=== PATIENT | male | born 1980 | race Caucasian/White ===

== ENCOUNTER 2017-04-27 19:38 | Emergency (ER) | payer MEDICAID ==
[~2017-04-27] VITALS: Ht 175.3 cm; Wt 114.8 kg
[2017-04-27 20:18] VITALS: BP 160/109
[2017-04-27 21:12] LABS: Basophils # (auto) 0.1 uL; Eosinophils # (auto) 0.2 uL; Hemoglobin 11.7 g/dL (13.5-17.5); Lymphocytes # (auto) 1.7 uL; Mean Corpuscular Hemoglobin 37.8 pg (28.0-32.0); Mean Corpuscular Hgb Conc. 34.4 g/dL (32.0-36.0); Nucleated Red Blood Cells % 0.1 %
[2017-04-27 21:14] LABS: Eosinophils % (auto) 1.9 % (0.0-7.0); Hematocrit 33.9 % (41.0-53.0); Lymphocytes % (auto) 18.3 % (10.0-50.0); Mean Corpuscular Volume 109.8 fL (80.0-100.0); Monocytes # (auto) 0.9 uL; Monocytes % (auto) 9.8 % (0.0-12.0); Neutrophils # (auto) 6.4 uL; Platelet Count (auto) 131 10^3/uL (140-450); Red Blood Cells 3.09 10^6/uL (4.5-5.90); Red Cell Distribution Width 13.8 % (11.8-14.3); White Blood Cell 9.2 10^3/uL (4.4-10.8)
[2017-04-27 21:29] LABS: Albumin 1.6 g/dL (3.4-5.0); BUN/Creatinine Ratio 10.9; Calcium 7.5 mg/dL (8.5-10.1)
== END 2017-04-27 22:56 | disposition left against medical advice (07) ==
LOC: ER 19:38
DX: R10.9 Unspecified abdominal pain (principal); Z53.21 Procedure and treatment not carried out due to patient leaving prior to being seen by health care provider
CPT/HCPCS: 36415; 74176; 80053; 82150; 83690; 85025

== ENCOUNTER 2017-04-28 10:52 | Emergency (ER) | payer MEDICAID ==
[2017-04-29] MEDS ORDERED: SPIR25TA89 PO (16:16)
[2017-04-29] MEDS ORDERED: LACT10SO3 PO (16:16)
[2017-04-29] MEDS ORDERED: FURO40TA4 PO (16:16)
== END 2017-04-28 11:41 | disposition left against medical advice (07) ==
LOC: ER 10:52
DX: R10.9 Unspecified abdominal pain (principal); Z53.21 Procedure and treatment not carried out due to patient leaving prior to being seen by health care provider

== ENCOUNTER 2017-04-28 20:19 | Inpatient (IN) | payer MEDICAID ==
[~2017-04-28] VITALS: Ht 175.3 cm; Wt 103.5 kg
[2017-04-28 22:49] LABS: Basophils # (auto) 0.1 uL; Eosinophils # (auto) 0.2 uL; Hemoglobin 11.1 g/dL (13.5-17.5); Mean Corpuscular Hgb Conc. 34.1 g/dL (32.0-36.0); Monocytes # (auto) 0.9 uL; Platelet Count (auto) 102 10^3/uL (140-450); White Blood Cell 8.3 10^3/uL (4.4-10.8)
[2017-04-28 22:50] LABS: Basophils % (auto) 0.7 % (0.0-2.0); Eosinophils % (auto) 2.2 % (0.0-7.0); Hematocrit 32.4 % (41.0-53.0); Lymphocytes # (auto) 1.4 uL; Lymphocytes % (auto) 17.4 % (10.0-50.0); Mean Corpuscular Hemoglobin 37.7 pg (28.0-32.0); Mean Corpuscular Volume 110.6 fL (80.0-100.0); Monocytes % (auto) 10.7 % (0.0-12.0); Neutrophils # (auto) 5.7 uL; Nucleated Red Blood Cells % 0.1 %; Red Blood Cells 2.93 10^6/uL (4.5-5.90); Red Cell Distribution Width 13.8 % (11.8-14.3)
[2017-04-28 23:04] LABS: INR 1.29 (0.9-1.15); Partial Thromboplastin Time 30.1 sec (22.64-33.71); Prothrombin Time 14.1 sec (9.37-12.3)
[2017-04-28 23:08] LABS: Alanine Aminotransferase 52 U/L (16-61); Albumin 1.4 g/dL (3.4-5.0); Amylase 39 U/L (25-115); Anion Gap 4 (5-15); Aspartate Aminotransferase 133 U/L (15-37); BUN/Creatinine Ratio 13.6; Blood Urea Nitrogen 15 mg/dL (7-18); Calcium 7.4 mg/dL (8.5-10.1); Carbon Dioxide 28 mmol/L (21-32); Chloride 105 mmol/L (98-107); GFR African American 97 mL/min; GFR Non-African American 80 mL/min; Glucose 112 mg/dL (74-106); Lipase 559 U/L (73-393); Magnesium 1.6 mg/dL (1.6-2.6); Potassium 4.1 mmol/L (3.5-5.1); Sodium 137 mmol/L (136-145)
[2017-04-28 23:13] LABS: Alkaline Phosphatase 234 U/L (45-117); Bilirubin, Total 3.6 mg/dL (0.2-1.0); Total Protein 7.4 g/dL (6.4-8.2)
[2017-04-29] MEDS ORDERED: traMADol HCL 50 MG TAB PO ONE (05:15)
[2017-04-29] MEDS ORDERED: LORazepam 0.5 MG TAB PO PRN (08:15)
[2017-04-29] MEDS ORDERED: NITROGLYCERIN 0.4 MG SL TAB SL PRN (08:15)
[2017-04-29] MEDS ORDERED: PROMETHAZINE HCL 25 MG/ML 1ML IV PRN (08:15)
[2017-04-29] MEDS ORDERED: TEMAZEPAM 15 MG CAP PO PRN (08:15)
[2017-04-29] MEDS ORDERED: MORPHINE SULFATE 4 MG/ML SYR/VIAL IV PRN ×2 (08:15)
[2017-04-29 09:08] VITALS: BP 167/90
[2017-04-29] MEDS: FUROSEMIDE 40 MG/4 ML VIAL IV SCH (10:54)
[2017-04-29] MEDS: LACTULOSE 20Gm/30ML SOLN PO SCH ×3 (10:54→20:35)
[2017-04-29] MEDS: PANTOPRAZOLE 40 MG TAB PO SCH (10:54)
[2017-04-29] MEDS: MORPHINE SULFATE 4 MG/ML SYR/VIAL IV PRN (11:13)
[2017-04-29] MEDS ORDERED: LACT10SO3 PO (16:16)
[2017-04-29] MEDS ORDERED: FURO40TA4 PO (16:16)
[2017-04-29] MEDS ORDERED: SPIR25TA89 PO (16:16)
[2017-04-29 16:53] VITALS: BP 146/107
[2017-04-29] MEDS: SPIRONOLACTONE 25 MG TAB PO SCH (17:53)
[2017-04-29 22:00] VITALS: BP 157/86
[2017-04-30] MEDS: LACTULOSE 20Gm/30ML SOLN PO SCH ×4 (03:15→21:05)
[2017-04-30 05:00] VITALS: BP 159/93
[2017-04-30] MEDS: SPIRONOLACTONE 25 MG TAB PO SCH ×2 (05:58→18:17)
[2017-04-30 07:16] LABS: Basophils # (auto) 0 uL; Eosinophils # (auto) 0.1 uL; Hemoglobin 9.6 g/dL (13.5-17.5); Mean Corpuscular Hgb Conc. 35.2 g/dL (32.0-36.0); Mean Corpuscular Volume 109.4 fL (80.0-100.0); Monocytes # (auto) 0.5 uL; Nucleated Red Blood Cells % 0.2 %; White Blood Cell 4.9 10^3/uL (4.4-10.8)
[2017-04-30 07:20] LABS: Basophils % (auto) 0.8 % (0.0-2.0); Eosinophils % (auto) 1.7 % (0.0-7.0); Hematocrit 27.1 % (41.0-53.0); Lymphocytes # (auto) 0.8 uL; Lymphocytes % (auto) 17.5 % (10.0-50.0); Mean Corpuscular Hemoglobin 38.6 pg (28.0-32.0); Monocytes % (auto) 11.1 % (0.0-12.0); Neutrophils # (auto) 3.3 uL; Neutrophils % (auto) 68.9 % (37.0-80.0); Platelet Count (auto) 72 10^3/uL (140-450); Red Blood Cells 2.48 10^6/uL (4.5-5.90); Red Cell Distribution Width 13.7 % (11.8-14.3)
[2017-04-30 07:58] LABS: Albumin 1.3 g/dL (3.4-5.0); BUN/Creatinine Ratio 15.9; Bilirubin, Total 6.5 mg/dL (0.2-1.0); Calcium 7.4 mg/dL (8.5-10.1); Potassium 3.8 mmol/L (3.5-5.1); Total Protein 6.5 g/dL (6.4-8.2)
[2017-04-30] MEDS: MORPHINE SULFATE 4 MG/ML SYR/VIAL IV PRN ×3 (08:01→17:45)
[2017-04-30 08:22] VITALS: BP 141/91
[2017-04-30] MEDS: FUROSEMIDE 40 MG/4 ML VIAL IV SCH (09:24)
[2017-04-30] MEDS: PANTOPRAZOLE 40 MG TAB PO SCH (09:24)
[2017-04-30 11:58] VITALS: BP 160/84
[2017-04-30] MEDS ORDERED: MULTIPLE VITAMINS W/ MINERALS TAB PO ONE (12:45)
[2017-04-30] MEDS: HYDROcodone-ACET 10/325MG TAB PO PRN ×2 (14:30→18:17)
[2017-04-30 16:42] VITALS: BP 92/78
[2017-04-30 22:00] VITALS: BP 155/93
[2017-05-01] MEDS: LACTULOSE 20Gm/30ML SOLN PO SCH ×4 (02:15→20:37)
[2017-05-01 05:00] VITALS: BP 153/97
[2017-05-01] MEDS: SPIRONOLACTONE 25 MG TAB PO SCH ×2 (05:29→18:15)
[2017-05-01 07:22] LABS: BUN/Creatinine Ratio 16.7; Calcium 7.4 mg/dL (8.5-10.1); Potassium 3.8 mmol/L (3.5-5.1)
[2017-05-01] MEDS: FUROSEMIDE 40 MG/4 ML VIAL IV SCH (08:44)
[2017-05-01] MEDS: PANTOPRAZOLE 40 MG TAB PO SCH (08:44)
[2017-05-01] MEDS: MULTIPLE VITAMINS W/ MINERALS TAB PO SCH (08:44)
[2017-05-01 09:09] VITALS: BP 156/93
[2017-05-01 11:53] VITALS: BP 149/87
[2017-05-01 16:32] VITALS: BP 146/93
[2017-05-01 22:00] VITALS: BP 155/96
[2017-05-02] MEDS: LACTULOSE 20Gm/30ML SOLN PO SCH ×4 (02:50→21:15)
[2017-05-02 05:00] VITALS: BP 142/79
[2017-05-02] MEDS: SPIRONOLACTONE 25 MG TAB PO SCH ×2 (05:59→17:46)
[2017-05-02 09:00] VITALS: BP 142/92
[2017-05-02] MEDS: MULTIPLE VITAMINS W/ MINERALS TAB PO SCH (09:31)
[2017-05-02] MEDS: PANTOPRAZOLE 40 MG TAB PO SCH (09:31)
[2017-05-02] MEDS: FUROSEMIDE 40 MG/4 ML VIAL IV SCH (09:41)
[2017-05-02 13:00] VITALS: BP 138/87
[2017-05-02 17:00] VITALS: BP 153/86
[2017-05-02] MEDS: chlordiazePOXIDE HCL 5 MG CAP PO PRN (17:46)
[2017-05-02 22:51] VITALS: BP 142/87
[2017-05-03] MEDS: SPIRONOLACTONE 25 MG TAB PO SCH ×2 (05:35→18:14)
[2017-05-03] MEDS: LACTULOSE 20Gm/30ML SOLN PO SCH ×3 (05:35→21:46)
[2017-05-03 05:36] VITALS: BP 132/71
[2017-05-03] MEDS: chlordiazePOXIDE HCL 5 MG CAP PO PRN ×3 (05:38→21:49)
[2017-05-03 09:34] VITALS: BP 135/80
[2017-05-03 09:51] LABS: Hepatitis B Surface Antigen Negative (Negative)
[2017-05-03 10:17] LABS: Hepatitis C Antibody Negative (Negative)
[2017-05-03 10:18] LABS: Hepatitis B Core IgM Negative
[2017-05-03 10:20] LABS: Hepatitis A Ab IgM Negative
[2017-05-03] MEDS: MULTIPLE VITAMINS W/ MINERALS TAB PO SCH (10:41)
[2017-05-03] MEDS: PANTOPRAZOLE 40 MG TAB PO SCH (10:42)
[2017-05-03] MEDS: FUROSEMIDE 40 MG/4 ML VIAL IV SCH (10:42)
[2017-05-03] MEDS ORDERED: IOHEXOL 300 MG/ML 100ML BOTTLE IJ ONE (12:16)
[2017-05-03 12:42] LABS: BUN/Creatinine Ratio 16.9; Calcium 7.6 mg/dL (8.5-10.1); Potassium 3.7 mmol/L (3.5-5.1)
[2017-05-03 13:00] VITALS: BP 141/82
[2017-05-03 16:48] VITALS: BP 132/68
[2017-05-03 19:30] VITALS: BP 141/80
[2017-05-03 22:00] VITALS: BP 141/80
[2017-05-04 05:00] VITALS: BP 128/72
[2017-05-04] MEDS: LACTULOSE 20Gm/30ML SOLN PO SCH (07:35)
[2017-05-04] MEDS: SPIRONOLACTONE 25 MG TAB PO SCH (07:35)
[2017-05-04 08:00] VITALS: BP 135/80
[2017-05-04 09:08] VITALS: BP 139/84
[2017-05-04] MEDS ORDERED: FUROSEMIDE 40 MG TAB PO SCH (10:00)
[2017-05-04] MEDS: MULTIPLE VITAMINS W/ MINERALS TAB PO SCH (10:07)
[2017-05-04] MEDS: PANTOPRAZOLE 40 MG TAB PO SCH (10:07)
[2017-05-04 12:00] VITALS: BP 141/79
[2017-05-04 14:53] VITALS: BP 139/84
[2017-05-04] MEDS: chlordiazePOXIDE HCL 5 MG CAP PO PRN (15:20)
== END 2017-05-04 15:21 | disposition home or self-care (01) ==
LOC: ER 20:19 → TELE 20:20 → TELE-EAST 04-29 15:14 → EAST 04-30 13:05
PROVIDERS: ADMIT Internal Medicine; ATTEND Internal Medicine
PROC: 0W9G3ZZ Drainage of Peritoneal Cavity, Percutaneous Approach (ICD-10-PCS; principal; 2017-04-29)
PROC: 0W9G3ZZ Drainage of Peritoneal Cavity, Percutaneous Approach (ICD-10-PCS; 2017-05-03)
DX: K74.69 Other cirrhosis of liver (principal); E43 Unspecified severe protein-calorie malnutrition; K76.6 Portal hypertension; D68.9 Coagulation defect, unspecified; R18.8 Other ascites; K85.90 Acute pancreatitis without necrosis or infection, unspecified; K72.90 Hepatic failure, unspecified without coma; D69.6 Thrombocytopenia, unspecified; R16.1 Splenomegaly, not elsewhere classified; F10.10 Alcohol abuse, uncomplicated; D63.8 Anemia in other chronic diseases classified elsewhere; I12.9 Hypertensive chronic kidney disease with stage 1 through stage 4 chronic kidney disease, or unspecified chronic kidney disease; N18.2 Chronic kidney disease, stage 2 (mild); F17.200 Nicotine dependence, unspecified, uncomplicated; Z68.33 Body mass index [BMI] 33.0-33.9, adult
CPT/HCPCS: 10022; 36415; 49083; 74176; 74177; 76700; 76705; 76942; 80048; 80053; 80061; 80074; 82105; 82140; 82150; 83690; 83735; 83880; 84443; 84484; 85025; 85610; 85730; 87081; 94761; 96374; 96375